=== PATIENT | female | born 1985 | race African-American/Black ===

== ENCOUNTER 2023-08-29 14:04 | Outpatient (CLI) | payer OTHER, SELFPAY | END 2023-08-29 14:05 | disposition home or self-care (01) | LOC: ANHAUDIO 14:05 | PROVIDERS: PCP Emergency Medicine; Visit Provider Emergency Medicine | DX: H93.13 Tinnitus, bilateral (principal); H90.41 Sensorineural hearing loss, unilateral, right ear, with unrestricted hearing on the contralateral side | CPT/HCPCS: 92557; 92567 ==